=== PATIENT | male | born 1960 | race Two or more races ===

== ENCOUNTER 2017-01-11 19:41 | Emergency (ER) | payer OTHER ==
[~2017-01-11] VITALS: Ht 185.4 cm; Wt 96.6 kg
[2017-01-11 20:40] LABS: Urine RBC None Seen /hpf (0 - 3)
[2017-01-11 20:48] LABS: Urine Bilirubin Negative (Negative); Urine Blood Negative /uL (Negative); Urine Color Yellow (Yellow); Urine Ketone Negative (Negative); Urine Nitrite Negative (Negative); Urine Squamous Epithelial Cell FEW /hpf (<5); Urine Urobilinogen Normal (Negative)
[2017-01-11 21:01] LABS: INR 0.96 (0.9-1.15); Partial Thromboplastin Time 23.8 sec (22.64-33.71); Prothrombin Time 10.5 sec (9.37-12.3)
[2017-01-11 21:06] LABS: Albumin 3.9 g/dL (3.4-5.0); Anion Gap 13 (5-15); BUN/Creatinine Ratio 26.2; Blood Urea Nitrogen 37 mg/dL (7-18); Calcium 8.6 mg/dL (8.5-10.1); Carbon Dioxide 22 mmol/L (21-32); Chloride 101 mmol/L (98-107); GFR African American 66 mL/min; GFR Non-African American 55 mL/min; Glucose 290 mg/dL (74-106); Sodium 136 mmol/L (136-145)
[2017-01-11 21:11] LABS: Alkaline Phosphatase 87 U/L (45-117); Bilirubin, Total 0.6 mg/dL (0.2-1.0); Total Protein 7.8 g/dL (6.4-8.2)
[2017-01-11 21:23] LABS: Basophils # (auto) 0 uL; Basophils % (auto) 0.5 % (0.0-2.0); CONDITION Y; DEFINITIVE SEE PRINTOUT; Eosinophils # (auto) 0.1 uL; Eosinophils % (auto) 1.5 % (0.0-7.0); Hematocrit 40.8 % (41.0-53.0); Hemoglobin 13.4 g/dL (13.5-17.5); Lymphocytes # (auto) 3.3 uL; Lymphocytes % (auto) 39.6 % (10.0-50.0); Mean Corpuscular Hemoglobin 21.7 pg (28.0-32.0); Mean Corpuscular Hgb Conc. 32.8 g/dL (32.0-36.0); Mean Corpuscular Volume 66.1 fL (80.0-100.0); Mean Platelet Volume 9.3 fL (7.4-10.4); Monocytes # (auto) 0.5 uL; Monocytes % (auto) 5.9 % (0.0-12.0); Neutrophils # (auto) 4.4 uL; Neutrophils % (auto) 52.5 % (37.0-80.0); Platelet Count (auto) 207 10^3/uL (140-450); Red Cell Distribution Width 16.9 % (11.6-16.0); White Blood Cell 8.4 10^3/uL (4.4-10.8)
[2017-01-11 21:28] LABS: Urine Glucose 4+ mg/dL (Normal)
[2017-01-11 21:47] LABS: Aspartate Aminotransferase 42 U/L (15-37); Potassium 4.4 mmol/L (3.5-5.1)
[2017-01-11 22:30] LABS: Hypochromia Moderate; Microcytosis Marked; Platelet Estimate Adequate
[2017-01-11 23:22] VITALS: BP 127/89
== END 2017-01-12 00:52 | disposition home or self-care (01) ==
LOC: ER 19:43
DX: G51.0 Bell's palsy (principal); R51 Headache; E11.65 Type 2 diabetes mellitus with hyperglycemia; I10 Essential (primary) hypertension
CPT/HCPCS: 36415; 70450; 71010; 80053; 81001; 84484; 85025; 85610; 85730; 93005